=== PATIENT | male | born 1980 | race American Indian/Alaskan Native ===

== ENCOUNTER 2019-01-04 23:03 | Emergency (ER) | payer MEDICAID ==
[2019-01-05 00:13] LABS: ANION GAP 15.9; CHLORIDE,CL 101 mmol/L (101-111); SODIUM,NA 137 mmol/L (135-145)
[2019-01-05] MEDS ORDERED: Ondansetron 4 MG/2 ML SDV IV ONE (00:26)
[2019-01-05] MEDS ORDERED: HYDROmorphone 1 MG/ML Syringe IVPUSH ONE ×2 (00:27→01:49)
[2019-01-05 00:43] VITALS: BP 129/70
--- NOTE | 2019-01-05 01:08 | EDM.PDOC ---
ED HPI GENERAL MEDICAL PROBLEM - General Chief Complaint: Headache Stated Complaint: Head Ache, Vomiting not eating Time Seen by Provider: 01/04/19 23:50 Source of Information: Reports: Patient History Limitations: Reports: No Limitations - History of Present Illness INITIAL COMMENTS - FREE TEXT/NARRATIVE: ED ambulatory with c/o headache behind eyes, rating 10/10 nausea No dizziness, change in balace or weakness . Recent Subdural on 12/27, intiially tx to then sent to [place]. Evacuation of bleed. No change in activity since discharge has been doing a lot of sleeping. H/a onset Wednesday, mild, increasing, worse last becky nauseated tonight with headache, sensitive to lights. No visual changes. Treatments [employer]: Reports: Acetaminophen, NSAIDS Frontal Headache Pain Score (Numeric/FACES): 8 - Related Data Allergies Allergy/AdvReac Type Severity Reaction Status Date / Time No Known Allergies Allergy Verified 09/23/15 19:24 Home Meds: Home Meds Aspirin [Lo-Dose Aspirin EC] 81 mg PO DAILY 01/04/19 [History] Carvedilol [Coreg] 6.25 g PO BID 01/04/19 [History] Fenofibric Acid (Choline) [Fenofibric Acid] 45 mg PO DAILY 01/04/19 [History] Insulin Detemir [Levemir] 100 unit SQ BEDTIME 01/04/19 [History] Losartan [Cozaar] 25 mg PO TID 01/04/19 [History] amLODIPine Besylate [Amlodipine Besylate] 10 mg PO DAILY 01/04/19 [History] atorvaSTATin [Lipitor] 40 mg PO DAILY 01/04/19 [History] Past Medical History Cardiovascular History: Reports: High Cholesterol, Hypertension Endocrine/Metabolic History: Reports: Diabetes, Type II Social & Family History - Family History Family Medical History: Noncontributory - Tobacco Use Smoking Status *Q: Former Smoker Used Tobacco, but Quit: Yes Month/Year Tobacco Last Used: 12/2018 Second Hand Smoke Exposure: Yes - Caffeine Use Caffeine Use: Reports: None Caffeine Use Comment: gave up a week ago - Recreational Drug Use Recreational Drug Use: No ED ROS GENERAL - Review of Systems Review Of Systems: ROS reveals no pertinent complaints other than HPI. - Physical Exam Exam: See Below Exam Limited By: No Limitations General Appearance: Moderate Distress, Obese Eye Exam: Bilateral Eye: EOMI, Normal Fundi, PERRL (3) Nose: Normal Inspection Throat/Mouth: Normal Inspection, Normal Lips Head Exam: Atraumatic, Normocephalic Neck: Normal Inspection, Full Range of Motion Respiratory/Chest: No Respiratory Distress, Lungs Clear, Normal Breath Sounds Cardiovascular: Normal Peripheral Pulses, Regular Rate, Rhythm GI/Abdominal: Normal Bowel Sounds Neuro Exam (Abbreviated): Alert, Oriented, CN II-XII Intact, Normal Cognition, No Motor/Sensory Deficits, Other (gcs 15) Extremities: Normal Inspection, Normal Range of Motion Psychiatric: Normal Affect, Normal Mood Skin Exam: Warm, Dry, Intact, Normal Color Course - Vital Signs Last Recorded V/S: Last Vital Signs Temp 96.9 F 01/04/19 23:28 Pulse 87 01/04/19 23:28 Resp 18 01/04/19 23:28 BP 129/70 01/04/19 23:28 Pulse Ox 97 01/04/19 23:28 - Orders/Labs/Meds Labs: Laboratory Tests 01/04/19 01/04/19 01/04/19 Range/Units 23:35 23:35 23:35 WBC 11.0 H (5.0-10.0) 10^3/uL RBC 5.03 (4.6-6.2) 10^6/uL Hgb 15.2 (14.0-18.0) g/dL Hct 44.2 (40.0-54.0) % MCV 87.9 (80-100) fL MCH 30.2 (27.0-34.0) pg MCHC 34.4 (33.0-35.0) g/dL Plt Count 326 D (150-450) 10^3/uL Neut % (Auto) 70.7 (42.2-75.2) % Lymph % (Auto) 22.1 (20.5-50.1) % Eddy % (Auto) 5.7 (2-8) % Eos % (Auto) 1.0 (1.0-3.0) % Baso % (Auto) 0.5 (0.0-1.0) % Sodium 137 (135-145) mmol/L Potassium 3.9 (3.6-5.0) mmol/L Chloride 101 (101-111) mmol/L Carbon Dioxide 24.0 (21.0-31.0) mmol/L Anion Gap 15.9 BUN 14 (7-18) mg/dL Creatinine 0.8 (0.6-1.3) mg/dL Est Cr Clr Drug Dosing TNP Estimated GFR (MDRD) > 60 BUN/Creatinine Ratio 17.50 Glucose 216 H (74-105) mg/dL POC Glucose (70-105) mg/dl Lactic Acid 1.2 (0.5-2.2) mmol/L Calcium 8.9 (8.4-10.2) mg/dl Total Bilirubin 1.0 (0.2-1.0) mg/dL AST 27 (10-42) IU/L ALT 44 (10-60) IU/L Alkaline Phosphatase 78 (42-121) IU/L Total Protein 7.5 (6.7-8.2) g/dl Albumin 4.3 (3.2-5.5) g/dl Globulin 3.2 Albumin/Globulin Ratio 1.34 Amylase 19 L (28-100) U/L Lipase 23 (22-51) U/L Ethyl Alcohol < 5 mg/dL 01/04/19 Range/Units 23:49 WBC (5.0-10.0) 10^3/uL RBC (4.6-6.2) 10^6/uL Hgb (14.0-18.0) g/dL Hct (40.0-54.0) % MCV (80-100) fL MCH (27.0-34.0) pg MCHC (33.0-35.0) g/dL Plt Count (150-450) 10^3/uL Neut % (Auto) (42.2-75.2) % Lymph % (Auto) (20.5-50.1) % Eddy % (Auto) (2-8) % Eos % (Auto) (1.0-3.0) % Baso % (Auto) (0.0-1.0) % Sodium (135-145) mmol/L Potassium (3.6-5.0) mmol/L Chloride (101-111) mmol/L Carbon Dioxide (21.0-31.0) mmol/L Anion Gap BUN (7-18) mg/dL Creatinine (0.6-1.3) mg/dL Est Cr Clr Drug Dosing Estimated GFR (MDRD) BUN/Creatinine Ratio Glucose (74-105) mg/dL POC Glucose 207 H (70-105) mg/dl Lactic Acid (0.5-2.2) mmol/L Calcium (8.4-10.2) mg/dl Total Bilirubin (0.2-1.0) mg/dL AST (10-42) IU/L ALT (10-60) IU/L Alkaline Phosphatase (42-121) IU/L Total Protein (6.7-8.2) g/dl Albumin (3.2-5.5) g/dl Globulin Albumin/Globulin Ratio Amylase (28-100) U/L Lipase (22-51) U/L Ethyl Alcohol mg/dL Meds: Medications Discontinued Medications Generic Name Dose Route Start Last Admin Trade Name Freq PRN Reason Stop Dose Admin Hydromorphone HCl 1 mg 01/05/19 00:27 01/05/19 00:40 Dilaudid IVPUSH 01/05/19 00:28 1 mg ONETIME ONE Administration Hydromorphone HCl 1 mg 01/05/19 01:49 01/05/19 02:07 Dilaudid IVPUSH 01/05/19 01:50 1 mg ONETIME ONE Administration Labetalol HCl 10 mg 01/05/19 01:57 01/05/19 02:55 Normodyne IVPUSH 01/05/19 01:58 Not Given ONETIME ONE Protocol Ondansetron HCl 4 mg 01/05/19 00:26 01/05/19 00:39 Zofran IV 01/05/19 00:27 4 mg ONETIME ONE Administration Departure - Departure Time of Disposition: 02:55 Disposition: DC/Tfer to Acute Hospital 02 Condition: Good Clinical Impression: Subdural bleeding Headache Qualifiers: Headache type: other headache syndrome Qualified Code(s): G44.89 - Other headache syndrome - Discharge Information *PRESCRIPTION DRUG MONITORING PROGRAM REVIEWED*: No *COPY OF PRESCRIPTION DRUG MONITORING REPORT IN PATIENT DAYANA: No Referrals: PCP,Unobtain [Ordering Only Provider] - Forms: ED Department Discharge
[2019-01-05] MEDS ORDERED: Labetalol 100 MG/20 ML MDV IVPUSH ONE (01:57)
== END 2019-01-05 02:49 ==
LOC: DL.ED 23:03
DX: G44.89 Other headache syndrome (principal); I62.00 Nontraumatic subdural hemorrhage, unspecified; I10 Essential (primary) hypertension; E78.00 Pure hypercholesterolemia, unspecified; E11.9 Type 2 diabetes mellitus without complications; Z87.891 Personal history of nicotine dependence; Z79.82 Long term (current) use of aspirin; Z79.4 Long term (current) use of insulin; Z79.899 Other long term (current) drug therapy
CPT/HCPCS: 36415; 70450; 80053; 82150; 82962; 83605; 83690; 85025; 96374; 96375; 96376; 99285; G0480; J1170; J2405